=== PATIENT | female | born 1990 | race Caucasian/White ===

== ENCOUNTER 2020-02-15 11:40 | Emergency (ER) | payer OTHER, SELFPAY ==
[2020-02-15 12:03] VITALS: BP 130/81; PULSE 78; TEMP 36.7; O2SAT 100
--- NOTE | 2020-02-15 12:20 | ED.GENADUL_ITS ---
Discharge Plan Disposition Patient Disposition: HOME Condition: Stable Discharge Details Chief Complaint: Sorethroat Clinical Impression: Pharyngitis Primary Care Provider: None,None ED Provider: Haroldo Stack Home Meds and New Rx's Prescriptions: No Action drospirenone-ethinyl estradiol [AHMET (28)] 1 EACH tablet 1 tab-cap PO DAILY Qty: 1 RF: 0 Discharge Instructions Instructions: Pharyngitis (ED) Additional Instructions: Please continue to wear your mask and observe social distancing. The dexamethasone should provide anti-inflammatory properties over the next 24 t o 36 hours. You may continue small, frequent sips of fluids for hydration, Tylenol as needed for pain. Return for worsening symptoms, development of difficulty breathing or fever, or any other acute concern. Stand Alone Forms: PENDING COVID-19 TESTING Medical Decision Making 29-year-old female presents from home with 4 to 5 days of sore throat. She does have mild erythema without exudate or swelling. No evidence of acute otitis on ear exam. Her rapid strep test is negative. Differential diagnosis includes viral pharyngitis. Must consider COVID and the patient does request testing which I feel is reasonable. I will have her take a single dose of dexamethasone for its anti-inflammatory properties and she is stable for discharge to home. HPI General Mode of arrival: ambulatory . Date/Time Provider Initiated Documentation: 02/15/20 11:47 . Limitations to Documentation: no limitations . Information obtained by: patient . History of Present Illness 29 year old F presents to the emergency department with the chief complaint of Sore throat, recently sore right ear now improved, described as moderate, Quality is described as dull and constant, and is localized to the mouth and neck. Patient reports no radiation. Patient started experiencing this day(s) and it has been constant. No relieving factors improve symptom(s), No exacerbating factors reported . Patient notes denies cough, fever/chills and shortness of breath. Related Data Home Medications Medication Instructions Recorded Confirmed drospirenone-ethinyl estradiol 1 tab-cap PO DAILY #1 pack 10/23/16 02/15/20 [Ahmet 28 Tablet] Allergies Allergy/AdvReac Type Severity Reaction Status Date / Time No Known Drug Allergies Allergy Unverified 02/15/20 12:07 General Stated Complaint: Sorethroat OUMOU: 4 Review of Systems Narrative: No recent travel, fever, cough. 6 systems reviewed and otherwise negative PFSH Family History Mother Breast cancer Father Hyperlipidemia Social History Smoking/Tobacco Use Status: Never Alcohol Intake: current Alcohol Intake frequency: 3 or more drinks per day Alcohol type: beer and wine Drug use: Never Substance use type: does not use Do you feel safe at home: Yes Do you feel safe in your relationship?: Yes Exam Narrative Exam Narrative: GEN: awake, alert, oriented 3. Pleasant, well groomed, interactive. HEAD: Normocephalic, atraumatic ENT: Mucous membranes moist, oropharynx erythematous without swelling/exudate/asymmetry. Tympanic membranes visualized and clear bilaterally, external ear exam unremarkable EYES: PERRL, EOMI NECK: Full ROM, no AIMEE, no menigismus CHEST/RESP: Nontender, clear to auscultation bilateral, no wheeze/rhonchi/rales CARDIOVASCULAR: RRR, no murmur, rub neto. 2+ Rad pulse bilateral EXT: Full ROM, no edema, no rash Neuro: Grossly normal neurologic exam, conversant, interactive. Psych: Speech fluent, thoughts congruent, affect normal Course Vital Signs Vital signs: Vital Signs Temperature 36.7 C 02/15/20 12:03 Pulse 78 02/15/20 12:03 Blood Pressure 130/81 02/15/20 12:03 Pulse Oximetry 100 02/15/20 12:03 Temperature 36.7 C 02/15/20 12:03 Temperature Source Temporal Artery Scan 02/15/20 12:03 Pulse 78 02/15/20 12:03 Respiratory Effort Non-Labored 02/15/20 12:05 Blood Pressure 130/81 02/15/20 12:03 Blood Pressure Position Sitting 02/15/20 12:03 Pulse Oximetry 100 02/15/20 12:03 Oxygen Delivery Method Room Air 02/15/20 12:03 Oxygen Flow Rate 0 02/15/20 12:03 Pain Level 2 02/15/20 12:03
[2020-02-15] MEDS: Dexamethasone 4 MG TAB 8 MG PO (12:27)
[2020-02-20 05:32] LABS: SARS-CoV-2 RNA Undetected (Undetected); SARS-CoV-2 Specimen Source Nasopharynx
--- NOTE | 2020-02-20 08:22 | NUR.NOTE ---
Nursing Note: Contacted pt via phone and notified of negative covid results.
== END 2020-02-15 12:37 | disposition home or self-care (01) ==
PROVIDERS: Emergency Provider Emergency Medicine
DX: J02.9 Acute pharyngitis, unspecified (principal); Z11.59 Encounter for screening for other viral diseases
CPT/HCPCS: 87880; 99283; U0003; 87081; J8540